=== PATIENT | female | born 1935 | race Caucasian/White ===

== ENCOUNTER 2023-11-16 11:11 | Emergency (ER) | payer MEDICARE, MEDICAID, SELFPAY ==
[2023-11-16 11:30] VITALS: BP 218/88; PULSE 67; RESP 15; TEMP 36.7; O2SAT 95; BMI 32.3
--- NOTE | 2023-11-16 11:44 | CT_ITS ---
WS: [id number] CT HEAD TECHNIQUE: Noncontrast CT of the head obtained from the skullbase to the vertex. CLINICAL INFORMATION: Dizziness COMPARISON: 2013 DLP: 1005.[address] scans at [facility] use at least one of these dose optimization techniques: automated e xposure control; mA and/or kV adjustment per patient size (includes targeted exams where dose is matc hed to clinical indication); or iterative reconstruction. FINDINGS: No evidence of intracranial hemorrhage or mass effect. Ventricular system and basal cisterns are lilly nt. Moderate small vessel changes with moderate parenchymal volume loss. No extra-axial fluid collect ions. No evidence of mass or mass effect. Vascular calcification. Paranasal sinuses and mastoid air cells are well aerated. .Normal visualized soft tissues. CT/CT head wo con* [id number] IMPRESSION: 1. No evidence of intracranial hemorrhage or mass effect. 2. Moderate small vessel changes with moderate parenchymal volume loss. 3. No acute intracranial findings.
--- NOTE | 2023-11-16 11:44 | ECG_ITS ---
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 Measurements Intervals [place] Rate: 65 P: 53 [place]: 139 QRS: 61 QRSD: 93 T: 74 QT: 435 QTc: 454 Interpretive Statements SINUS RHYTHM No previous ECG available for comparison Electronically Signed On 11-17-2023 07:42:06 CDT by Jerry Velasco M.D. [id number]
--- NOTE | 2023-11-16 12:13 | ED_ITS ---
HPI - Neuro Symptoms/Deficit 2 General: Chief Complaint: Neuro Symptoms/Deficit Stated Complaint: Headache,n,v, ams, weak Time Seen by Provider: 11/16/23 11:44 History of Present Illness: 88-year-old male presents to the emergen cy room with complaints of dizziness worsened by movement and head. It began overnight he had a little bit of symptoms last night but this morning she noticed particular when she moves her head to the left or to the right. Triggers significant amounts of vertigo. When she lays still it is better. No vomiting. She has been able to ambulate okay. She denies difficulty with speech or swallowing. 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 Blood pressure is markedly elevated on her first arrival. Associated symptoms: Reports vertigo; Deny chest pain or headache(s) Related Data Home Medications Medication Instructions Recorded Confirmed lisinopril 10 mg tablet 10 mg PO DAILY 11/16/23 11/16/23 Previous Rx's Medication Instructions Recorded aspirin 81 mg tablet,delayed 81 mg PO DAILY #30 tabs 11/16/23 release atorvastatin 40 mg tablet 40 mg PO DAILY #30 tabs 11/16/23 clopidogrel 75 mg tablet 75 mg PO DAILY #30 tabs 11/16/23 meclizine 25 mg tablet 25 mg PO QID PRN dizziness #14 tabs 11/16/23 Allergies Allergy/AdvReac Type Severity Reaction Status Date / Time acetaminophen Allergy Unknown Verified 11/16/23 13:39 [From Panlor (hydrocodone-acetamin)] albuterol Allergy Unknown Verified 11/16/23 13:39 amoxicillin Allergy Unknown Verified 11/16/23 13:39 Beta-Adrenergic Agents Allergy Unknown Verified 11/16/23 13:39 cefuroxime [From Ceftin] Allergy Unknown Verified 11/16/23 13:39 clindamycin Allergy Unknown Verified 11/16/23 13:39 erythromycin base Allergy Unknown Verified 11/16/23 13:39 fluticasone Allergy Unknown Verified 11/16/23 13:39 [From Flovent HFA] guaifenesin [From Entex [place]] Allergy Unknown Verified 11/16/23 13:39 hydrocodone Allergy Unknown Verified 11/16/23 13:39 [From Panlor (hydrocodone-acetamin)] Influenza Virus Vaccines Allergy Unknown Verified 11/16/23 13:39 Iodinated Contrast Media Allergy Unknown Verified 11/16/23 11:45 iodine Allergy Unknown Verified 11/16/23 13:39 metronidazole Allergy Unknown Verified 11/16/23 13:39 phenylephrine [From Entex [place]] Allergy Unknown Verified 11/16/23 13:39 phenylpropanolamine Allergy Unknown Verified 11/16/23 13:39 [From Entex [place]] rofecoxib [From Vioxx] Allergy Unknown Verified 11/16/23 13:39 Tetanus Vaccines and Toxoid Allergy Unknown Verified 11/16/23 13:39 Tetracyclines Allergy Unknown Verified 11/16/23 13:39 tramadol [From Ultram] Allergy Unknown Verified 11/16/23 13:39 egg white Allergy Unknown Uncoded 11/16/23 13:39 Review of Systems 2 Const: Denies: fever(s) or chills Card: Denies: chest pain Resp: Denies: dyspnea GI: Denies: abdominal pain : Denies: dysuria, urinary frequency or urinary urgency Musc: Denies: neck pain or back pain Skin/Breast: Denies: rash Neuro: Reports: vertigo; Denies: headache(s), numbness in extremities or weakness in extremities NIH stroke score 2 NIHSS: Level Of Consciousness - 1a: 0 Level Of Consciousness Questions - 1b: Both Correct Level Of Consciousness Commands - 1c: Both Correct Best Gaze - 2: Normal Visual Monet - 3: No Visual Loss Facial Palsy - 4: N ormal Motor Arm Right - 5: No Drift Motor Arm Left - 5: No Drift Motor Leg Right - 6: No Drift Motor Leg Left - 6: No Drift Limb Ataxia - 7: A bsent Sensory - 8: Mild To Moderate Loss Best Language - 9: No Aphasia Dysarthia - 10: Normal Extinction And Inattention - 11: 0 Score: Total Score: 1 Physical Exam 2 Const: COMMON NORMALS: no acute distress GENERAL APPEARANCE: cooperative and comfortable ORIENTATION/CONSCIOUSNESS: Yes awake HENMT: COMMON NORMALS: normocephalic, atraumatic and hearing grossly normal bilaterally HEAD & SCALP: normocephalic and atraumatic Resp: COMMON NORMALS: normal respiratory effort, No retractions, No use of accessory muscles and clear to auscultation bilaterally AUSCULTATION: clear to auscultation bilaterally Cardio: COMMON NORMALS: regular rate, regular rhythm and No murmurs present (Cardio) RATE: regular rate RHYTHM: regular rhythm GI: COMMON NORMALS: Soft to palpation and No hepatosplenomegaly present A USCULTATION: Yes normoactive bowel sounds PALPATION: Yes Soft to palpation, No Tenderness to palpation present (GI), No Guarding due to palpation present (GI) and Yes No hepatosplenomegaly present Extremity: COMMON NORMALS: normal to inspection, capillary refill normal, no clubbing, cyanosis or edema, no calf tenderness and no pedal edema Skin: COMMON NORMALS: no rashes or lesions noted GENERAL SKIN EXAM: no rashes or lesions noted Course 2 Vital Signs: Vital signs: Vital Signs Temperature 98.0 F 11/16/23 11:30 Pulse Rate 62 11/16/23 15:11 Respiratory Rate 15 11/16/23 11:30 Blood Pressure 150/78 11/16/23 15:11 Pulse Oximetry 96 11/16/23 15:11 Oxygen Delivery Me thod Room Air 11/16/23 11:30 MDM - Neuro Symptoms/Deficit Medical Decision Making Symptoms reproducible patient able to ambulate without difficulty. Labs and imaging completed. I believe she has more positional vertigo. With her history of previous TIAs for the family we will start her on dual platelet therapy and atorvastatin also gave her meclizine to use as needed. Her symptoms have improved at this point she still has some dizziness particularly movement of her head to the left or the right. Follow-up with primary care doctor. Lab Data 11/16/23 11:56 11/16/23 11:[address] 11/16/23 11:44 IMPRESSION: 1. No evidence of intracranial hemorrhage or mass effect. 2. Moderate small vessel changes with moderate parenchymal volume loss. 3. No acute intracranial findings. Laboratory Results WBC 6.79 10^3/uL (3.29-11.43) 11/16/23 11:56 RBC 5.24 10^6/uL (3.85-5.65) 11/16/23 11:56 Hgb 15.20 g/dL (11.27-16.99) 11/16/23 11:56 Hct 46.9 % (36-47) 11/16/23 11:56 MCV 89.5 fl (85-98) 11/16/23 11:56 MCH 29.0 pg (27-33) 11/16/23 11:56 MCHC 32.4 g/dL (30-55) 11/16/23 11:56 RDW 14.3 % (12.1-15.1) 11/16/23 11:56 Plt Count 205 10^3/cmm (157-399) 11/16/23 11:56 MPV 10.8 fL (7.4-10.4) H 11/16/23 11:56 Neut % (Auto) 58.6 % 11/16/23 11:56 Lymph % (Auto) 27.2 % 11/16/23 11:56 [place] % (Auto) 9.3 % 11/16/23 11:56 Eos % (Auto) 3.7 % 11/16/23 11:56 Baso % (Auto) 0.6 % 11/16/23 11:56 Neut # (Auto) 3.98 10^3/uL (1.8-7.7) 11/16/23 11:56 Lymph # (Auto) 1.9 10^3/uL (0.8-4.8) 11/16/23 11:56 [place] # (Auto) 0.6 10^3/uL (0.2-0.9) 11/16/23 11:56 Eos # (Auto) 0.3 10^3/uL (0.0-0.8) 11/16/23 11:56 Baso # (Auto) 0.0 10^3/uL (0.0-0.1) 11/16/23 11:56 Nucleated RBC % (auto) 0 % 11/16/23 11:56 Nucleated RBCs # 0.0 /100WBC 11/16/23 11:56 Sodium 139 mmol/L (136-145) 11/16/23 11:56 Potassium 3.9 mmol/L (3.5-5.1) 11/16/23 11:56 Chloride 104 mmol/L (98-107) 11/16/23 11:56 Carbon Dioxide 26 mmol/L (22-29) 11/16/23 11:56 Anion Gap 12.9 (5-19) 11/16/23 11:56 BUN 6 mg/dL (8-23) L 11/16/23 11:56 Creatinine 0.9 mg/dL (0.5-0.9) 11/16/23 11:56 GFR Calculation Not Reportable 11/16/23 11:56 Glucose 127 mg/dL (65-115) H 11/16/23 11:56 Calculated Osmolality 287 mOsm/kg (285-295) 11/16/23 11:56 Calcium 9.2 mg/dL (8.5-10.5) 11/16/23 11:56 Total Bilirubin 0.9 mg/dL (0.15-1.2) 11/16/23 11:56 AST 31 U/L (0-32) 11/16/23 11:56 ALT 16 U/L (0-33) 11/16/23 11:56 Alkaline Phosphatase 130 U/L (35-105) H 11/16/23 11:56 Total Protein 6.7 g/dL (6.6-8.7) 11/16/23 11:56 Albumin 3.8 g/dL (3.5-5.2) 11/16/23 11:56 Globulin 2.9 g/dL (1.3-4.6) 11/16/23 11:56 Urine Color Yellow (Yellow) 11/16/23 12:16 Urine Appearance Clear (CLEAR) 11/16/23 12:16 Urine pH 7.0 (5-7) 11/16/23 12:16 Ur Specific [place] 1.005 (1.005-1.030) 11/16/23 12:16 Urine Protein Negative (Negative) 11/16/23 12:16 Urine Glucose (UA) Negative (Normal) 11/16/23 12:16 Urine Ketones Negative (Negative) 11/16/23 12:16 Urine Blood Trace (Negative) A 11/16/23 12:16 Urine Nitrate Negative (Negative) 11/16/23 12:16 Urine Bilirubin Negative (Negative) 11/16/23 12:16 Urine Urobilinogen 0.2 mg/dL (Negative) 11/16/23 12:16 Ur Leukocyte Esterase 3+ (Negative) A 11/16/23 12:16 Urine RBC 0-2 /hpf (0-2) 11/16/23 12:16 Urine WBC 21-50 /hpf (0-5) H 11/16/23 12:16 Ur Squamous Epith Cells 0-5 /hpf (0-5) 11/16/23 12:16 Amorphous Sediment Not Reportable 11/16/23 12:16 Urine Bacteria None seen /hpf (NONE) 11/16/23 12:16 Hyaline Casts 0.40 /lpf 11/16/23 12:16 All radiology interpretation(s) finalized by discharge Discharge Plan Discharge Patient Disposition: Home Clinical Impression: Benign paroxysmal positional vertigo Condition: Stable Prescriptions: New aspirin 81 mg tablet,delayed release (DR/EC) 81 mg PO DAILY Qty: 30 0RF atorvastatin 40 mg tablet 40 mg PO DAILY Qty: 30 0RF clopidogrel 75 mg tablet 75 mg PO DAILY Qty: 30 0RF meclizine 25 mg tablet 25 mg PO QID PRN (Reason: dizziness) Qty: 14 0RF No Action lisinopril 10 mg tablet 10 mg PO DAILY Discharge Orders: Discharge ED (Routine); Ordered 11/16/23 Ordered By: Anthony Harden Referrals: Baljinder Li DO [Primary Care Provider] - Discharge Diet: Usual diet Discharge Activity: Increase activity as tolerated Patient Instructions: Benign Paroxysmal Positional Vertigo (ED), Opioid Safety, Pain Management Activity Restrictions/Additional Instructions: Thank you for choosing [facility] for your healthcare needs today. It is very important that you follow up as instructed or that you return to the Emergency Department should you have concerns or if your condition changes or worsens in any way. You are seen today with complaint of dizziness with movement in your head. CT of your head was negative. You reported you previously had had strokes recommend you start on aspirin atorvastatin 40 mg daily clopidogrel 75 p.o. daily continue your other medications. Use meclizine 1 tablet every 6 hours as needed for dizziness. Follow-up with your doctor within the week. Coding Level of Care Code ED Sammying Machine Operator for Harjeet Harrington
[2023-11-16 12:14] LABS: Basophils % 0.6 %; Eosinophils # 0.3 10^3/uL (0.0-0.8); Eosinophils % 3.7 %; Hematocrit 46.9 % (36-47); Lymphocytes # 1.9 10^3/uL (0.8-4.8); Lymphocytes % 27.2 %; Mean Corpuscular HGB Conc 32.4 g/dL (30-55); Mean Corpuscular Volume 89.5 fl (85-98); Mean Platelet Volume 10.8 fL (7.4-10.4); Monocytes # 0.6 10^3/uL (0.2-0.9); Monocytes % 9.3 %; Neutrophils # 3.98 10^3/uL (1.8-7.7); Neutrophils % 58.6 %; Nucleated Red Blood Cells % 0 %; Platelet Count 205 10^3/cmm (157-399); Red Blood Count 5.24 10^6/uL (3.85-5.65); Red Cell Distribution Width 14.3 % (12.1-15.1); White Blood Count 6.79 10^3/uL (3.29-11.43)
[2023-11-16 12:36] LABS: Alanine Aminotransferase 16 U/L (0-33); Albumin Level 3.8 g/dL (3.5-5.2); Alkaline Phosphatase 130 U/L (35-105); Anion Gap 12.9 (5-19); Aspartate Amino Transferase 31 U/L (0-32); Blood Urea Nitrogen 6 mg/dL (8-23); Calcium 9.2 mg/dL (8.5-10.5); Carbon Dioxide 26 mmol/L (22-29); Chloride 104 mmol/L (98-107); Creatinine Clr Calc Pharmacy 48.0778; Globulin 2.9 g/dL (1.3-4.6); Glucose 127 mg/dL (65-115); Osmolality Calculated 287 mOsm/kg (285-295); Potassium 3.9 mmol/L (3.5-5.1); Sodium 139 mmol/L (136-145); Total Bilirubin 0.9 mg/dL (0.15-1.2); Total Protein 6.7 g/dL (6.6-8.7)
[2023-11-16 12:44] VITALS: BP 200/82
[2023-11-16 12:54] LABS: Bilirubin Urine Negative (Negative); Blood Urine Trace (Negative); Glucose Urine UA Negative (Normal); Ketones Urine Negative (Negative); Leukocyte Esterase Urine 3+ (Negative); Nitrate Urine Negative (Negative); Protein Urine Negative (Negative); Specific Gravity, Urine 1.005 (1.005-1.030); Urine Appearance Clear (CLEAR); Urine Color Yellow (Yellow); Urobilinogen Urine 0.2 mg/dL (Negative)
[2023-11-16 12:57] LABS: Add Urine Microscopic? YES; Bacteria Urine None Seen /hpf; RBC Urine 0-2 /hpf (0-2); Squamous Epithelial Cell Urine 0-5 /hpf (0-5); WBC Urine 21-50 /hpf (0-5)
[2023-11-16 13:05] VITALS: BP 142/73
[2023-11-16] MEDS: hyDRALAzine 20 mg/mL INJ 1 mL IVP (13:05)
[2023-11-16 13:08] LABS: Add Urine Culture? Yes
--- NOTE | 2023-11-16 13:47 | PC.NURSE ---
pt ambulated x2 times to bathroom with cane, this is pt baseline
[2023-11-16 14:05] VITALS: BP 145/74; PULSE 61; O2SAT 96
[2023-11-16 15:11] VITALS: BP 150/78; PULSE 62; O2SAT 96
--- NOTE | 2023-11-20 12:11 | DCPLANNER ---
Addendum entered by Mirian Evans 11/20/23 14:53: messaged heart care for holter Original Note: faxed outpatient orders to scheduling for er f/u
== END 2023-11-16 15:12 | disposition home or self-care (01) ==
PROVIDERS: Emergency Provider Family Medicine; PCP Internal Medicine
DX: H81.10 Benign paroxysmal vertigo, unspecified ear (principal); Z86.73 Personal history of transient ischemic attack (TIA), and cerebral infarction without residual deficits
CPT/HCPCS: 70450; 80053; 81001; 85025; 87086; 93005; 96374; 99285; J0360

== ENCOUNTER 2023-12-13 15:57 | Emergency (ER) | payer MEDICARE, MEDICAID, SELFPAY ==
[2023-12-13] VITALS (9 sets, daily range): BP systolic 154–178; BP diastolic 57–73; PULSE 60–67; RESP 17–25; TEMP 36.8; O2SAT 93–96
--- NOTE | 2023-12-13 16:12 | XRR_ITS ---
PROCEDURE INFORMATION: Exam: XR Chest Exam date and time: 12/13/2023 5:08 PM Age: 88 years old Clinical indication: Pain; Chest pressure; Additional info: Chest pain TECHNIQUE: Imaging protocol: Radiologic exam of the chest. Views: 1 view. COMPARISON: No relevant prior studies available. FINDINGS: Lungs: Unremarkable. No consolidation. Pleural spaces: Unremarkable. No pleural effusion. No pneumothorax. Heart/Mediastinum: Unremarkable. No cardiomegaly. Bones/joints: Unremarkable. XR/XR chest 1V portable [id number] IMPRESSION: No acute findings.
--- NOTE | 2023-12-13 16:12 | ECG_ITS ---
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 Measurements Intervals [place] Rate: 63 P: 47 [place]: 154 QRS: 59 QRSD: 101 T: 56 QT: 437 QTc: 448 Interpretive Statements SINUS RHYTHM LOW QRS VOLTAGE IN PRECORDIAL LEADS [QRS DEFLECTION < 1.0 mV IN CHEST LEADS] Compared to ECG 11/16/2023 11:47:51 Low QRS voltage now present Electronically Signed On 12-14-2023 21:16:35 AURICULAR DETOXIFICATION SPECIALIST by Ora Green M.D. [id number]
--- NOTE | 2023-12-13 16:17 | W.ED.CHESTPA ---
HPI - Chest Pain General: Chief Complaint: Chest Pain Stated Complaint: chest pain, Dizziness, nausea Time Seen by Provider: 12/13/23 16:09 History of Present Illness: 88-year-old female with a history of dementia who presents to the emergency room with chest pain and some nausea while at the urgent care. She been taken there because she had some generalized weakness. She then had some chest pain while she was there. She is currently chest pain-free. She said she had some pressure in the center of her chest. No focal motor deficits. She is oriented to person. She does have some short-term memory issues. Related Data Home Medications Medication Instructions Recorded Confirmed lisinopril 10 mg tablet 10 mg PO DAILY 11/16/23 11/16/23 Previous Rx's Medication Instructions Recorded aspirin 81 mg tablet,delayed 81 mg PO DAILY #30 tabs 11/16/23 release atorvastatin 40 mg tablet 40 mg PO DAILY #30 tabs 11/16/23 clopidogrel 75 mg tablet 75 mg PO DAILY #30 tabs 11/16/23 meclizine 25 mg tablet 25 mg PO QID PRN dizziness #14 tabs 11/16/23 ciprofloxacin HCl 500 mg tablet 500 mg PO BID 7 days #14 tabs 12/13/23 Allergies Allergy/AdvReac Type Severity Reaction Status Date / Time acetaminophen Allergy Unknown Verified 11/16/23 13:39 [From Panlor (hydrocodone-acetamin)] albuterol Allergy Unknown Verified 11/16/23 13:39 amoxicillin Allergy Unknown Verified 11/16/23 13:39 Beta-Adrenergic Agents Allergy Unknown Verified 11/16/23 13:39 cefuroxime [From Ceftin] Allergy Unknown Verified 11/16/23 13:39 clindamycin Allergy Unknown Verified 11/16/23 13:39 erythromycin base Allergy Unknown Verified 11/16/23 13:39 fluticasone Allergy Unknown Verified 11/16/23 13:39 [From Flovent HFA] guaifenesin [From Entex LA] Allergy Unknown Verified 11/16/23 13:39 hydrocodone Allergy Unknown Verified 11/16/23 13:39 [From Panlor (hydrocodone-acetamin)] Influenza Virus Vaccines Allergy Unknown Verified 11/16/23 13:39 Iodinated Contrast Media Allergy Unknown Verified 11/16/23 11:45 iodine Allergy Unknown Verified 11/16/23 13:39 metronidazole Allergy Unknown Verified 11/16/23 13:39 phenylephrine [From Entex LA] Allergy Unknown Verified 11/16/23 13:39 phenylpropanolamine Allergy Unknown Verified 11/16/23 13:39 [From Entex LA] rofecoxib [From Vioxx] Allergy Unknown Verified 11/16/23 13:39 Tetanus Vaccines and Toxoid Allergy Unknown Verified 11/16/23 13:39 Tetracyclines Allergy Unknown Verified 11/16/23 13:39 tramadol [From Ultram] Allergy Unknown Verified 11/16/23 13:39 egg white Allergy Unknown Uncoded 11/16/23 13:39 Review of Systems Narrative: Constitutional symptoms: Negative except as documented in HPI. Skin symptoms: Negative except as documented in HPI. Eye symptoms: Negative except as documented in HPI. ENMT symptoms: Negative except as documented in HPI. Respiratory symptoms: Negative except as documented in HPI. Cardiovascular symptoms: Negative except as documented in HPI. Gastrointestinal symptoms: Negative except as documented in HPI. Genitourinary symptoms: Negative except as documented in HPI. Musculoskeletal symptoms: Negative except as documented in HPI. Neurologic symptoms: Negative except as documented in HPI. Psychiatric symptoms: Negative except as documented in HPI. Endocrine symptoms: Negative except as documented in HPI. Physical Exam Narrative: EXAM NARRATIVE: General: Alert, no acute distress. Skin: Warm, dry. Head: Normocephalic, atraumatic. Neck: Supple, trachea midline. Eye: Extraocular movements are intact. Ears, nose, mouth and throat: mucosa moist. Cardiovascular: Regular, Normal peripheral perfusion. Respiratory: Lungs are clear to auscultation, respirations are non-labored, breath sounds are equal, Symmetrical chest wall expansion. Gastrointestinal: Soft, Nontender, Non distended Musculoskeletal: Normal ROM, no deformity. Neurological: Alert and oriented, No focal neurological deficit observed. Psychiatric: Cooperative, appropriate mood & affect. Course Vital Signs: Vital signs: Vital Signs Temperature 98.3 F 12/13/23 15:59 Pulse Rate 60 12/13/23 19:00 Respiratory Rate 25 H 12/13/23 19:00 Blood Pressure 167/70 12/13/23 19:00 Pulse Oximetry 96 12/13/23 19:00 Oxygen Delivery Me thod Room Air 12/13/23 15:59 MDM - Chest Pain Medical Decision Making Differential diagnosis for patient with chest pain includes but is not limited to and based on the above HPI, review of systems and physical exam: Pneumonia. unstable angina. angina. Acute coronary syndrome / [place]. Pulmonary embolism. Costochondritis / musculoskeletal. Pleurisy. Pericarditis. Esophageal spasm. Pancreatis. Cholecystitis. Also with generalized weakness will be worried about a urinary tract infection. Orders placed to evaluate differential diagnosis based on the above differential, HPI and physical exam EKG: Time 1606. Rate 63. Normal sinus rhythm, No ST-T changes, no ectopy, normal OR & QRS intervals, This was reviewed and interpreted by myself the ER physician at 1610. Repeat EKG: Time 1823. Rate 61. Normal sinus rhythm, No ST-T changes, no ectopy, normal OR & QRS intervals, This was reviewed and interpreted by myself the ER physician at 1827. No changes from previous EKG in the ER today. Lab Review: Laboratory results were reviewed and interpreted by myself the emergency room physician. No leukocytosis. No anemia. No renal failure. Serial cardiac markers are negative. Patient does have a significant urinary tract infection Chest x-ray: No acute process. No infiltrate. No pneumothorax. This was reviewed and interpreted by myself the ER physician. I reviewed the patient's medical record. Reexamination: Patient remained stable. No increased work of breathing. No altered mental status. No focal motor deficits. Assessment and plan: Noncardiac chest pain Urinary tract infection ?Patient has numerous allergies. Ultimately Cipro was about the only thing I could use to treat this. She received IV Cipro here in the emergency room. - Discharged home - Discussed findings and plan with patient. Answered any questions. - All laboratory values were reviewed and interpreted personally by myself, the ER physician - All imaging was reviewed and interpreted personally by myself, the ER physician. - Evaluation and treatment of this problem were appropriate in the emergency setting Lab Data 12/13/23 16:24 12/13/23 16:24 Radiology Impressions Chest X-Ray 12/13/23 16:12 IMPRESSION: No acute findings. Laboratory Results WBC 6.60 10^3/uL (3.29-11.43) 12/13/23 16:24 RBC 5.10 10^6/uL (3.85-5.65) 12/13/23 16:24 Hgb 14.90 g/dL (11.27-16.99) 12/13/23 16:24 Hct 45.3 % (36-47) 12/13/23 16:24 MCV 88.8 fl (85-98) 12/13/23 16:24 MCH 29.2 pg (27-33) 12/13/23 16:24 MCHC 32.9 g/dL (30-55) 12/13/23 16:24 RDW 13.9 % (12.1-15.1) 12/13/23 16:24 Plt Count 235 10^3/cmm (157-399) 12/13/23 16:24 MPV 9.5 fL (7.4-10.4) 12/13/23 16:24 Neut % (Auto) 48.9 % 12/13/23 16: Lymph % (Auto) 33.2 % 12/13/23 16:24 Graham % (Auto) 12.3 % 12/13/23 16:24 Eos % (Auto) 4.4 % 12/13/23 16:24 Baso % (Auto) 0.6 % 12/13/23 16:24 Neut # (Auto) 3.23 10^3/uL (1.8-7.7) 12/13/23 16:24 Lymph # (Auto) 2.2 10^3/uL (0.8-4.8) 12/13/23 16:24 Graham # (Auto) 0.8 10^3/uL (0.2-0.9) 12/13/23 16:24 Eos # (Auto) 0.3 10^3/uL (0.0-0.8) 12/13/23 16:24 Baso # (Auto) 0.0 10^3/uL (0.0-0.1) 12/13/23 16:24 Nucleated RBC % (auto) 0 % 12/13/23 16:24 Nucleated RBCs # 0.0 /100WBC 12/13/23 16:24 Sodium 131 mmol/L (136-145) L 12/13/23 16:24 Potassium 4.9 mmol/L (3.5-5.1) 12/13/23 16:24 Chloride 97 mmol/L (98-107) L 12/13/23 16:24 Carbon Dioxide 25 mmol/L (22-29) 12/13/23 16:24 Anion Gap 13.9 (5-19) 12/13/23 16:24 BUN 8 mg/dL (8-23) 12/13/23 16:24 Creatinine 0.9 mg/dL (0.5-0.9) 12/13/23 16:24 GFR Calculation Not Reportable 12/13/23 16:24 Glucose 104 mg/dL (65-115) 12/13/23 16:24 Calculated Osmolality 271 mOsm/kg (285-295) L 12/13/23 16:24 Calcium 9.1 mg/dL (8.5-10.5) 12/13/23 16:24 Total Bilirubin 0.4 mg/dL (0.15-1.2) 12/13/23 16:24 AST 23 U/L (0-32) 12/13/23 16:24 ALT 21 U/L (0-33) 12/13/23 16:24 Alkaline Phosphatase 111 U/L (35-105) H 12/13/23 16:24 Troponin T Baseline 16 ng/L (0-10) H 12/13/23 16:24 Troponin T 120 Minute 14.24 ng/L (0-10) H 12/13/23 18:00 Delta Troponin T -1.76 ABS# (0-10) L 12/13/23 18:00 Total Protein 5.4 g/dL (6.6-8.7) L 12/13/23 16:24 Albumin 3.9 g/dL (3.5-5.2) 12/13/23 16:24 Globulin 1.5 g/dL (1.3-4.6) 12/13/23 16:24 Urine Color Dark yellow (Yellow) A 12/13/23 17:04 Urine Appearance Turbid (CLEAR) A 12/13/23 17:04 Urine pH 5.5 (5-7) 12/13/23 17:04 Ur Specific [place] 1.016 (1.005-1.030) 12/13/23 17:04 Urine Protein 2+ (Negative) A 12/13/23 17:04 Urine Glucose (UA) Negative (Normal) 12/13/23 17:04 Urine Ketones Trace (Negative) 12/13/23 17:04 Urine Blood 3+ (Negative) A 12/13/23 17:04 Urine Nitrate Negative (Negative) 12/13/23 17:04 Urine Bilirubin Negative (Negative) 12/13/23 17:04 Urine Urobilinogen 1.0 mg/dL (Negative) 12/13/23 17:04 Ur Leukocyte Esterase 3+ (Negative) A 12/13/23 17:04 Urine RBC 5-10 /hpf (0-2) H 12/13/23 17:04 Urine WBC Too numerous to cnt /hpf (0-5) H 12/13/23 17:04 Ur Squamous Epith Cells 0-4 /hpf (0-5) H 12/13/23 17:04 Calcium Oxalate Crystal 25-40 /hpf H 12/13/23 17:04 Amorphous Sediment Not Reportable 12/13/23 17:04 Urine Bacteria 2+ /hpf (NONE) H 12/13/23 17:04 All radiology interpretation(s) finalized by discharge Discharge Plan Discharge Patient Disposition: Home Clinical Impression: Urinary tract infection, Non-cardiac chest pain Condition: Stable Prescriptions: New ciprofloxacin HCl 500 mg tablet 500 mg PO BID 7 Days Qty: 14 0RF No Action lisinopril 10 mg tablet 10 mg PO DAILY aspirin 81 mg tablet,delayed release (DR/EC) 81 mg PO DAILY Qty: 30 0RF atorvastatin 40 mg tablet 40 mg PO DAILY Qty: 30 0RF clopidogrel 75 mg tablet 75 mg PO DAILY Qty: 30 0RF meclizine 25 mg tablet 25 mg PO QID PRN (Reason: dizziness) Qty: 14 0RF Discharge Orders: Discharge ED (Routine); Ordered 12/13/23 Ordered By: Olga Blankenship Referrals: Baljinder Li DO [Primary Care Provider] - Discharge Diet: Usual diet Discharge Activity: Increase activity as tolerated Patient Instructions: Noncardiac Chest Pain (ED), Urinary Tract Infection in Older Adults (ED), Opioid Safety, Pain Management Activity Restrictions/Additional Instructions: Thank you for choosing [facility] for your healthcare needs today. Please realize this is an emergency room and that we are providing you with a medical screening exam and this may not be complete and all inclusive of all the testing and or work up that you may need to determine your ailment or severity of your illness. You have been screened and evaluated and felt safe for discharge. Health conditions do change or evolve sometimes and as such it is important that you follow up with your Primary Doctor to be re checked, 3-5 days is a general good time frame for follow up. You are always welcome to return to the ED for re assessment if your symptoms are worsening or you have new concerns Coding Level of Care Code ED [employer] Manager for Harjeet Harrington
[2023-12-13 16:34] LABS: Basophils % 0.6 %; Eosinophils # 0.3 10^3/uL (0.0-0.8); Eosinophils % 4.4 %; Hematocrit 45.3 % (36-47); Lymphocytes # 2.2 10^3/uL (0.8-4.8); Lymphocytes % 33.2 %; Mean Corpuscular HGB Conc 32.9 g/dL (30-55); Mean Corpuscular Hemoglobin 29.2 pg (27-33); Mean Corpuscular Volume 88.8 fl (85-98); Mean Platelet Volume 9.5 fL (7.4-10.4); Monocytes # 0.8 10^3/uL (0.2-0.9); Monocytes % 12.3 %; Neutrophils # 3.23 10^3/uL (1.8-7.7); Neutrophils % 48.9 %; Nucleated Red Blood Cells % 0 %; Platelet Count 235 10^3/cmm (157-399); Red Cell Distribution Width 13.9 % (12.1-15.1)
[2023-12-13 16:59] LABS: Troponin(5th) Baseline 16 ng/L (0-10)
[2023-12-13 17:01] LABS: Alanine Aminotransferase 21 U/L (0-33); Albumin Level 3.9 g/dL (3.5-5.2); Alkaline Phosphatase 111 U/L (35-105); Aspartate Amino Transferase 23 U/L (0-32); Blood Urea Nitrogen 8 mg/dL (8-23); Calcium 9.1 mg/dL (8.5-10.5); Carbon Dioxide 25 mmol/L (22-29); Chloride 97 mmol/L (98-107); Creatinine Clr Calc Pharmacy 49.2916; Globulin 1.5 g/dL (1.3-4.6); Glucose 104 mg/dL (65-115); Osmolality Calculated 271 mOsm/kg (285-295); Sodium 131 mmol/L (136-145); Total Bilirubin 0.4 mg/dL (0.15-1.2); Total Protein 5.4 g/dL (6.6-8.7)
[2023-12-13 17:11] LABS: Anion Gap 13.9 (5-19); Potassium 4.9 mmol/L (3.5-5.1)
[2023-12-13 17:19] LABS: Bilirubin Urine Negative (Negative); Blood Urine 3+ (Negative); Glucose Urine UA Negative (Normal); Ketones Urine Trace (Negative); Leukocyte Esterase Urine 3+ (Negative); Nitrate Urine Negative (Negative); Protein Urine 2+ (Negative); Specific Gravity, Urine 1.016 (1.005-1.030); Urine Appearance Turbid (CLEAR); Urine Color Dark Yellow (Yellow); pH Urine 5.5 (5-7)
[2023-12-13 17:48] LABS: Bacteria Urine 2+ /hpf; Squamous Epithelial Cell Urine 0-4 /hpf (0-5); WBC Urine TOO NUMEROUS TO CNT /hpf (0-5)
[2023-12-13 17:50] LABS: Add Urine Culture? Yes
--- NOTE | 2023-12-13 18:12 | ECG_ITS ---
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
[2023-12-13 18:53] LABS: Calcium Oxalate Crystals Urine 25-40 /hpf
[2023-12-13 18:53] LABS: Troponin 5 2HR 14.24 ng/L (0-10)
[2023-12-13 18:54] LABS: Troponin 5 2HR Delta -1.76 ABS# (0-10)
[2023-12-13] MEDS: ciprofloxacin 400 MG/200 ML PREMIX 200 MG IV (19:05)
== END 2023-12-13 20:20 | disposition home or self-care (01) ==
PROVIDERS: Emergency Provider Emergency Medicine; PCP Internal Medicine
DX: N39.0 Urinary tract infection, site not specified (principal); R07.89 Other chest pain; Z79.82 Long term (current) use of aspirin; Z79.02 Long term (current) use of antithrombotics/antiplatelets
CPT/HCPCS: 36415; 71045; 80053; 81001; 84484; 85025; 87086; 93005; 99285; J0744

== ENCOUNTER → 2024-07-17 12:39 | Outpatient (BNVA) | payer MEDICARE, MEDICAID, SELFPAY | PROVIDERS: PCP Family Medicine; Visit Provider Podiatrist Foot & Ankle Surgery | DX: S92.354A Nondisplaced fracture of fifth metatarsal bone, right foot, initial encounter for closed fracture (principal); X58.XXXA Exposure to other specified factors, initial encounter | CPT/HCPCS: 99204 ==

== ENCOUNTER → 2024-08-05 14:01 | Outpatient (BNVA) | payer MEDICARE, MEDICAID, SELFPAY | PROVIDERS: PCP Family Medicine; Visit Provider Podiatrist Foot & Ankle Surgery | DX: M79.671 Pain in right foot (principal); S99.191D Other physeal fracture of right metatarsal, subsequent encounter for fracture with routine healing; X58.XXXD Exposure to other specified factors, subsequent encounter | CPT/HCPCS: 73630; 99214 ==

== ENCOUNTER → 2024-08-19 14:23 | Outpatient (BNVA) | payer MEDICARE, MEDICAID, SELFPAY | PROVIDERS: PCP Family Medicine; Visit Provider Podiatrist Foot & Ankle Surgery | DX: M79.671 Pain in right foot (principal); S99.191D Other physeal fracture of right metatarsal, subsequent encounter for fracture with routine healing; S92.354D Nondisplaced fracture of fifth metatarsal bone, right foot, subsequent encounter for fracture with routine healing; X58.XXXD Exposure to other specified factors, subsequent encounter | CPT/HCPCS: 73630; 99213 ==

== ENCOUNTER → 2024-09-02 09:30 | Outpatient (BNVA) | payer MEDICARE, MEDICAID, SELFPAY | PROVIDERS: PCP Family Medicine; Visit Provider Podiatrist Foot & Ankle Surgery | DX: S92.354D Nondisplaced fracture of fifth metatarsal bone, right foot, subsequent encounter for fracture with routine healing (principal); X58.XXXD Exposure to other specified factors, subsequent encounter | CPT/HCPCS: 73630; 99213 ==